=== PATIENT | female | born 1990 | race Hispanic/Latino ===

== ENCOUNTER 2017-03-25 11:12 | Inpatient (IN) | payer OTHER ==
[2017-03-25] VITALS (13 sets, daily range): BP systolic 100–126; BP diastolic 59–82
[~2017-03-25] VITALS: Ht 175.3 cm; Wt 77.0 kg
[2017-03-25] MEDS ORDERED: MULTTAB20 PO (11:14)
[2017-03-25] MEDS ORDERED: LACTATED RINGER'S 1000 ML IV STA (11:29)
[2017-03-25] MEDS ORDERED: LR 1,000 ML IV SCH (12:00)
[2017-03-25 12:27] LABS: MEAN CORPUSCULAR HEMOGLOBIN 31.5 pg (27.0-33.0); MEAN CORPUSCULAR HGB CONC 34.5 g/dl (32.0-36.5); MEAN CORPUSCULAR VOLUME 91.2 fl (80.0-96.0); WHITE BLOOD COUNT 6.7 K/mm3 (4.0-10.0)
[2017-03-25] MEDS ORDERED: miSOPROStol 50 MCG 1/2 TAB (S0191) PV ONE (13:00)
[2017-03-25] MEDS ORDERED: OXYTOCIN DRIP 30 UNITS in APPROPRIATE DILUENT 1 EA IV SCH (16:45)
[2017-03-26] VITALS (12 sets, daily range): BP systolic 107–136; BP diastolic 60–75
--- NOTE | 2017-03-26 09:39 | IPNPDOC ---
Text Note Date of Service The patient was seen on 03/26/17. NOTE SBAR from Dr Saavedra at ~0800, chart and labor course reviewed NST Cat1 Cx loose 1 cm, stretched to 2-3 cm, interestingly bed is dry and vtx is ballotable with a BBOW noted, consistent with reselaed membranes Given that has resealed from yesterday, will place a FB FB placed with 60 cc's in the bulb Now desires IV meds, will give Nubain and Phenergan Recheck 1-2 hrs after FB comes out VS,Fishbone, I+O VS, Fishbone, I+O Laboratory Tests 03/25/17 11:50 Red Blood Count 3.82 L, Mean Corpuscular Volume 91.2, Mean Corpuscular Hemoglobin 31.5, Mean Corpuscular Hemoglobin Concent 34.5, Red Cell Distribution Width 14.0 Vital Signs Date Time Temp Pulse Resp B/P (MAP) Pulse Ox O2 Delivery O2 Flow Rate FiO2 03/26/17 05:38 97.3 78 18 119/72 (88) 03/25/17 18:34 Non-Rebreather SESSIONS,DANIELA Charles MD Mar 26, 2017 09:39
[2017-03-26] MEDS ORDERED: NALBUPHINE HCL 10 MG/ML AMP (J2300) IV ONE (09:45)
[2017-03-26] MEDS ORDERED: NALBUPHINE HCL 10 MG/ML AMP (J2300) IM ONE (09:45)
[2017-03-26] MEDS ORDERED: PROMETHAZINE INJ 25 MG/ML VIAL (J2550) IV ONE (09:45)
--- NOTE | 2017-03-26 20:11 | IPNPDOC ---
Text Note Date of Service The patient was seen on 03/26/17. NOTE Desires an epidural Pitocin at 20 mu/min FB finally came out 1900 NST Cat 1, reg ctx's Cx 5/100/-1 AROM with thick mec, will let NICU MD know Pit off for epidural and pit rest to recruit receptors Recheck in 2 hrs, sooner prn, if unchanged will restart pitocin Sessions VS,Jeff, I+O VS, Jeff, I+O Vital Signs Date Time Temp Pulse Resp B/P (MAP) Pulse Ox O2 Delivery O2 Flow Rate FiO2 03/26/17 05:38 97.3 78 18 119/72 (88) 03/25/17 18:34 Non-Rebreather SESSIONS,DANIELA Charles MD Mar 26, 2017 20:11
[2017-03-26] MEDS ORDERED: FENTANYL 2MCG/ML ROPIVACAINE 0.2% IN 0.9% NACL 200ML IVBAG As Ordered ONE (20:17)
[2017-03-26] MEDS ORDERED: REFRIGERATOR IV KEYS XX PRN (21:15)
[2017-03-26] MEDS ORDERED: ePHEDrine SULFATE 25 MG/5 ML(5MG/ML) SYRINGE IV PRN (21:15)
[2017-03-26] MEDS ORDERED: ONDANSETRON 4MG/2ML VIAL (J2405) IV PRN (21:15)
[2017-03-26] MEDS ORDERED: EPIDURAL COMMENT XX SCH (21:15)
[2017-03-26] MEDS ORDERED: EPIDURAL/PCA KEYS XX PRN (21:15)
[2017-03-26] MEDS ORDERED: FENTANYL/ROPIVACAINE/NACL BAG 200 ML EPIDURAL SCH (21:15)
[2017-03-26] MEDS ORDERED: NALOXONE INJ 0.4 MG/1 ML VIAL (J2310) IV PRN (21:15)
[2017-03-26] MEDS ORDERED: diphenhydrAMINE INJ 50MG/ML VIAL (J1200) IV PRN (21:15)
[2017-03-26] MEDS ORDERED: LACTATED RINGER'S 1000 ML IV PRN (21:15)
--- NOTE | 2017-03-26 22:10 | IPNPDOC ---
Text Note Date of Service The patient was seen on 03/26/17. NOTE S/P epidural, good relief NST Cat 1 throughout, current Cx unchanged Restart pitocin, check ~MN Sessions VS,Jeff, I+O VSJeff, I+O Vital Signs Date Time Temp Pulse Resp B/P (MAP) Pulse Ox O2 Delivery O2 Flow Rate FiO2 03/26/17 05:38 97.3 78 18 119/72 (88) 03/25/17 18:34 Non-Rebreather SESSIONS,DANIELA Charles MD Mar 26, 2017 22:10
[2017-03-27] VITALS (10 sets, daily range): BP systolic 110–138; BP diastolic 58–86
--- NOTE | 2017-03-27 00:37 | IPNPDOC ---
Text Note Date of Service The patient was seen on 03/27/17. NOTE Pain controlled, reg ctx's, on 12 mu/min pitocin NST Cat 1 throughout, periods of less variab but always returns to reassuring Cx , slight change-IUPC placed incr pitocin to adeq MVU's, recheck when adeq for ~2 hrs D'd w RN Sessions VS,Jeff, I+O VS, Jeff I+O Vital Signs Date Time Temp Pulse Resp B/P (MAP) Pulse Ox O2 Delivery O2 Flow Rate FiO2 03/26/17 05:38 97.3 78 18 119/72 (88) 03/25/17 18:34 Non-Rebreather SESSIONS,DANIELA Charles MD Mar 27, 2017 00:37
[2017-03-27] MEDS ORDERED: OXYTOCIN 30 UNITS IN 0.9% NaCl 500ML IV BAG (J2590) As Ordered ONE (07:43)
[2017-03-27] MEDS ORDERED: OXYTOCIN DRIP IV SCH (09:00)
[2017-03-27] MEDS ORDERED: miSOPROStol 200 MCG TAB (S0191) PR ONE (09:00)
[2017-03-27] MEDS ORDERED: OXYTOCIN IV SCH (09:00)
[2017-03-27] MEDS ORDERED: DIBUCAINE 1% OINTMENT 30GM TOP PRN (09:15)
[2017-03-27] MEDS ORDERED: PROMETHAZINE 25 MG TAB PO PRN (09:15)
[2017-03-27] MEDS ORDERED: DOCUSATE SODIUM 100 MG CAP PO PRN (09:15)
[2017-03-27] MEDS ORDERED: MOM 30ML SUSPENSION UDC PO PRN (09:15)
--- NOTE | 2017-03-27 09:16 | DNPDOC ---
[facility] Delivery Note Delivery Note DATE OF DELIVERY: Mar 27, 2017 at 07:45 PREDELIVERY DIAGNOSIS: 41-2/7 weeks' gestation and labor. POST DELIVERY DIAGNOSIS: Delivered. PROCEDURE: AMMONIA OPERATOR: Nakia Cavazos CNM ANESTHESIA: epidural ESTIMATED BLOOD LOSS: 400 mL. FINDINGS:8 pound 5 ounce male , Score 9/9 DELIVERY SUMMARY: Patient is a 26-year-old 1 now para 1001 who was admitted to labor and delivery for IOL. Assumed care @ 1430. Pt had progressed to c/c/+3 with pushing. She had a strong desire to push with CTXs with epidural infusing. Delivery was via of a viable male infant to a clean field; the presented occiput anterior with no nuchal cord noted; anterior shoulder(right) delivered with mild downward traction, then the posterior shoulder delivered with mild upward traction; remainder of corpus delivered spontaneously; infant cord clamped and cut and infant taken to the warmer d/t meconium with a strong cry; pitocin was started with delivery of the anterior shoulder; 3 vessel cord noted. Placenta manually removed 30 min after delivery; fundal massage was applied and vaginal vault was swept for clots ; bedside US by Dr. Trevizo noted no retained POC, vagina and perineum examined; 2MLL noted and repaired using the Rachelle Method. Fundus firm at U- 2. [id number], Infant had 9/9; mother and infant are bonding well and were stable in the delivery room; anticipate routine PP course. Delivering Provider: NINA Sun KELLI C. CNM Mar 27, 2017 09:16
[2017-03-27] MEDS: PRENATAL VITAMINS CHEWABLE TABLET PO SCH (10:27)
[2017-03-27] MEDS: IBUPROFEN 800 MG TAB PO PRN ×2 (10:27→20:01)
[2017-03-28] MEDS: IBUPROFEN 800 MG TAB PO PRN ×2 (05:38→17:23)
[2017-03-28 05:40] VITALS: BP 108/67
[2017-03-28] MEDS: PRENATAL VITAMINS CHEWABLE TABLET PO SCH (07:48)
[2017-03-28] MEDS: ACETAMINOPHEN 500 MG TAB PO PRN (07:55)
[2017-03-28 18:01] VITALS: BP 107/68
[2017-03-29] MEDS: ACETAMINOPHEN 500 MG TAB PO PRN (00:44)
[2017-03-29 05:34] VITALS: BP 126/71
[2017-03-29] MEDS ORDERED: ACET50TA PO (07:47)
[2017-03-29] MEDS ORDERED: COLA100C5 PO (07:47)
[2017-03-29] MEDS ORDERED: IBUP-1114 PO (07:47)
[2017-03-29] MEDS ORDERED: MOM30SS PO (07:48)
[2017-03-29] MEDS ORDERED: NUPE1OIN2 TOP (07:48)
[2017-03-29] MEDS: PRENATAL VITAMINS CHEWABLE TABLET PO SCH (08:17)
--- NOTE | 2017-03-29 21:23 | DSES ---
DATE OF ADMISSION: 03/25/2017 DATE OF DISCHARGE: 03/29/2017 This is a 26-year-old 1, now para 1 admitted for induction of labor at 41 weeks of gestation, spontaneous vaginal delivery, male, 8 pounds 5 ounces, 3756 grams, score of 9 and 9 at one and five minutes respectively. Her risk factors was she is a GDMA1. The rest of the history is unremarkable. Her admitting hemoglobin is 12.0, hematocrit 34.9 and platelets were 270. Her discharge vital signs: Blood pressure 126/71, respirations 16, pulse 91, temperature is 98.0. We discussed phlebitis, cystitis, mastitis, endometritis and cellulitis, diet, excise pain management, perineal, breast and wound care. On discharge, she is: Normocephalic, atraumatic. Neck: Full range of motion. Pupils equal and reactive to light. Chest: Distal pulses are symmetric. No evidence of deep vein thrombosis (DVT), pulmonary embolism (PE) or superficial phlebitis. Lungs are clear bilaterally to bases. No wheezes or rhonchi. No costovertebral angle tenderness. Uterus 2 below, lochia is moderate. Four quadrant bowel sounds are noted. Perineum is healing. No rashes, lesions or pruritus. No arthralgia, myalgia. No complaints of cough, wheezes, shortness of breath or dyspnea on exertion. No chest pain. Not bleeding. Neurologic complete. No incontinency, urgency or frequency. No nausea, vomiting, diarrhea or constipation. No diabetic issues. No AIRLINE PILOT/FIRST OFFICER issues. PAST MEDICAL HISTORY: Unremarkable. SURGICAL HISTORY: Unremarkable. FAMILY HISTORY: Noncontributory. She does not smoke or drink or abuse drugs. . There is no domestic violence. In summary we have a late term gestation, induction of labor, delivered a live male , discharged, to followup in the office in 6 weeks' time. Medications were given at discharge.
== END 2017-03-29 09:35 | disposition home or self-care (01) | DRG 775 ==
LOC: M LDI 11:12 → M OBS 03-27 10:45
PROVIDERS: ADMIT Student in an Organized Health Care Education/Training Program; ATTEND Student in an Organized Health Care Education/Training Program
PROC: 3E0DXGC Introduction of Other Therapeutic Substance into Mouth and Pharynx, External Approach (ICD-10-PCS; 2017-03-25)
PROC: 10907ZC Drainage of Amniotic Fluid, Therapeutic from Products of Conception, Via Natural or Artificial Opening (ICD-10-PCS; 2017-03-26)
PROC: 10E0XZZ Delivery of Products of Conception, External Approach (ICD-10-PCS; principal; 2017-03-27)
PROC: 0KQM0ZZ Repair Perineum Muscle, Open Approach (ICD-10-PCS; 2017-03-27)
DX: O24.420 Gestational diabetes mellitus in childbirth, diet controlled (principal); Z37.0 Single live birth; Z3A.41 41 weeks gestation of pregnancy; O48.0 Post-term pregnancy; Z79.899 Other long term (current) drug therapy; O77.0 Labor and delivery complicated by meconium in amniotic fluid; O70.1 Second degree perineal laceration during delivery